=== PATIENT | male | born 1955 | race Caucasian/White ===

== ENCOUNTER 2017-04-29 15:53 | Emergency (ER) | payer OTHER ==
[~2017-04-29] VITALS: Wt 97.5 kg
[2017-04-29 16:15] LABS: BASO % 0.2 % (0.0-1.0); EOS # 0.1 10*3/uL (0.0-0.4); EOS % 1.5 % (1.0-4.0); HEMATOCRIT 40.9 % (42.0-52.0); HEMOGLOBIN 13.6 g/dl (14.0-18.0); LYMPH # 2.3 10*3/uL (1.3-4.4); LYMPH % 26.1 % (27.0-41.0); MEAN CELL VOLUME 91.9 fl (80.0-94.0); MEAN CORPUSCULAR HGB 30.6 pg (27.0-31.0); MEAN CORPUSCULAR HGB CONC 33.3 g/dl (33.0-37.0); MEAN PLATELET VOLUME 10.2 fl (9.6-12.3); MONO # 0.7 10*3/uL (0.1-1.0); MONO % 7.5 % (3.0-9.0); NEUT # 5.7 10*3/uL (2.3-7.9); NEUT % 64.4 % (47.0-73.0); PLATELET COUNT AUTOMATED 264 10*3/uL (130-400); RED BLOOD COUNT 4.45 10*6/uL (4.50-5.90); RED CELL DISTRI WIDTH 12.6 % (0-14.5); WHITE BLOOD COUNT 8.8 10*3/uL (4.8-10.8)
[2017-04-29 16:24] LABS: ACT PARTIAL THROMBO TIME 20.3 SECONDS (20.8-31.5)
[2017-04-29 16:30] LABS: ALBUMIN 3.7 gm/dl (3.1-4.5); CREATININE 2.43 mg/dL (0.70-1.30); POTASSIUM 4.6 mmol/L (3.5-5.1); TOTAL PROTEIN 6.8 gm/dL (6.4-8.2)
== END 2017-04-29 16:50 | disposition short-term general hospital (02) ==
LOC: ED 15:53
PROVIDERS: Nurse Practitioner Family
DX: S68.127A Partial traumatic metacarpophalangeal amputation of left little finger, initial encounter (principal); S68.121A Partial traumatic metacarpophalangeal amputation of left index finger, initial encounter; S68.123A Partial traumatic metacarpophalangeal amputation of left middle finger, initial encounter; S68.125A Partial traumatic metacarpophalangeal amputation of left ring finger, initial encounter; Y28.8XXA Contact with other sharp object, undetermined intent, initial encounter; Y93.9 Activity, unspecified; Y92.9 Unspecified place or not applicable; Y99.9 Unspecified external cause status